=== PATIENT | female | born 1975 | race African-American/Black ===

== ENCOUNTER 2024-03-31 20:14 | Emergency (ER) | payer SELFPAY ==
--- NOTE | ~2024-03-31 | CT_ITS ---
EXAMINATION: CTA chest PE abdomen pel DATE: 04/01/2024 7:08 MANAGER PROJECT MANAGEMENT INDICATION: Shortness of breath TECHNIQUE: Computed tomographic angiography (CTA) of the chest, abdomen, and pelvis was performed wit h 100 mL Omnipaque-350 intravenous contrast. The dose-length product was 794.81 mGy-cm. Maximum inten sity projection 3D-reconstructions of the aorta and other arteries were constructed by the [employer] st on a separate workstation. Automated exposure control and iterative reconstruction technique were employed. COMPARISON: None. FINDINGS: CHEST CTA: No evidence for aortic aneurysm or dissection. No pulmonary embolism. No thoracic lymphadenopathy. No significant pleural or pericardial effusion. No pneumothorax. No endobronchial lesions. Dependent at electasis. No focal consolidation. No suspicious pulmonary nodules or masses. ABDOMEN AND PELVIS CTA: No significant vascular abnormality. Nonobstructive bowel gas pattern. The liver, spleen, pancreas, a drenal glands and kidneys are unremarkable. No lymphadenopathy. No abnormal pelvic masses or fluid co llections. Mild thoracic spondylosis. Mild osteoarthritis of the hips. Small subcentimeter hypodensit ies of the kidneys, most likely benign cysts. IMPRESSION: 1. No acute abnormality of the chest, abdomen or pelvis. Reviewed, dictated and finalized at location A. GER PROJECT MANAGEMENT
[2024-03-31 20:39] VITALS: BP 140/77; PULSE 70; RESP 20; TEMP 36.7; O2SAT 97
[2024-03-31 21:10] LABS: Add Urine Microscopic? YES; Appearance Urine Cloudy (Clear); Bacteria Urine 1+ /hpf; Bilirubin Urine Negative (Negative); Blood Urine 2+ (Negative); Color Urine Dark Yellow (Yellow); Glucose Urine UA Negative (Negative); Ketones Urine Trace mg/dL (Negative); Leukocyte Esterase Ur Negative LEU/UL (Negative); Need Manual Microscopic Reviewed; Nitrate Urine Negative (Negative); Non Pathogenic Casts 0-2; Protein Urine Negative (Negative); RBC Urine 21-50 /hpf (0-2); Specific Grav Ur 1.039 (1.001-1.035); Squamous Epithelial Cell Urine Many /hpf (Few)
[2024-04-01] VITALS (17 sets, daily range): BP systolic 148–186; BP diastolic 67–97; PULSE 75; RESP 17; O2SAT 95–100
[2024-04-01 00:24] LABS: Pregnancy On Board Control Positive; Urine Pregnancy Test Negative
[2024-04-01 00:24] LABS: Basophils Percent Auto 0.2 % (0.2-1.2); Eosinophils Percent Auto 0.2 % (0-4.4); Hematocrit 38.2 % (37.0-47.0); Hemoglobin 12.5 g/dL (12.0-15.0); Immature Granulocyte Absolute 0.01 K/mm3 (0.00-0.031); Immature Granulocyte Percent A 0.2 % (0-0.5); Lymphocytes Absolute Auto 1.31 K/mm3 (0.9-3.2); Lymphocytes Percent Auto 27.7 % (18.3-44.2); Mean Corpuscular HGB Conc 32.7 g/dl (32-36); Mean Corpuscular Hemoglobin 31.3 pg (26-34); Mean Corpuscular Volume 95.7 fl (80-100); Mean Platelet Volume 10.8 fl (7.4-10.4); Monocytes Absolute Auto 0.4 K/mm3 (0.1-0.6); Monocytes Percent Auto 8.5 % (2.6-8.5); Neutrophils Percent Auto 63.2 % (45.5-73.1); Platelet Count Result 187 k/mm3 (150-375); Red Blood Count 3.99 M/mm3 (4.2-5.4); Red Cell Distribution Width 13.4 % (11.5-14.5); White Blood Count 4.7 K/mm3 (4.5-10.0)
--- NOTE | 2024-04-01 00:35 | ECG_ITS ---
Test Date: 2024-04-01 00:35:00 Measurements Intervals [place] Rate: 65 P: 33 WY: 163 QRS: 89 QRSD: 104 T: 26 QT: 431 QTc: 448 Interpretive Statements SINUS RHYTHM NONSPECIFIC T-WAVE ABNORMALITY No previous ECG available for comparison Electronically Signed On 04-01-2024 15:56:29 BROOM MACHINE OPERATOR by Bernardo Steinberg M.D.
[2024-04-01 00:37] LABS: Alanine Aminotransferase 21 U/L (6-35); Alkaline Phosphatase 65 U/L (38-126); Anion Gap 8 mmol/L (4-12); Aspartate Amino Transferase 23 U/L (14-36); Bilirubin,Total 0.8 mg/dL (0.2-1.3); Blood Urea Nitrogen 11 mg/dL (7-17); Calcium 8.7 mg/dL (8.4-10.2); Carbon Dioxide 28 mmol/L (22-30); Chloride 103 mmol/L (98-107); Estimated Glomerular Filt Rate > 60; Glucose 92 mg/dL (65-110); Lipase 19 U/L (23-300); Potassium 3.3 mmol/L (3.4-5.0); Sodium 139 mmol/L (137-145)
[2024-04-01 01:00] LABS: Influenza A QL RT-PCR Negative (Negative); Influenza B QL RT-PCR Negative (Negative); RSV RNA, RT-PCR Negative (Negative); SARS-CoV-2 RNA PCR Negative (Negative)
--- OUTSIDE RECORDS SUMMARY | 2024-04-01 01:11 | XMS_ITS | Clinical Summary ---
Author Organization [facility] Care Team Providers Care Welder Apprentice Arc Name Role Phone Unavailable Primary Care Provider Unavailabl e Social History Tobacco Use Types Packs/Day Years Used Date Smoking Tobacco: Never Assessed Comments Unknown Sex and Gender Information Value Date Recorded Sex Assigned at Not on file Legal Sex Female 10:22 AM SATELLITE COMMUNICATIONS ENGINEER Gender Identity Not on file Sexual Orientation Not on file Plan of Treatment Health Maintenance Due Date Last Done Comments Hepatitis C Virus (HCV) Screening 1976 Pap Smear 1997 Cervical Cancer Screening (CCS) 2006 HPV/Cotest 2006 Hepatitis B Immunization (2 of 3 - 19+ 3-dose series) 10/23/2010 09/25/2010 Discussion re Starting/Frequency of Mammograms 2016 Colonoscopy 2021 Colorectal Cancer Screening 2021 Influenza Immunization (#1) 2023 SARS-COV-2 Immunization ( season) 2023 Respiratory Syncytial Virus (RSV) Immunization (Adult) (1 - 1-dose 75+ series) 12/09/2051 DTaP/Tdap/Td Immunization Discontinued 2010, 12/30/1991 TdaP Immunization Completed 09/25/2010 Meningococcal Immunization (ACWY) Aged Out 10/12/2010 No longer eligible based on patient's age to complete this topic Pneumococcal Immunization Combined Aged Out No longer eligible based on patient's age to complete this topic Rotavirus Immunization Aged Out No lo nger eligible based on patient's age to complete this topic
--- OUTSIDE RECORDS SUMMARY | 2024-04-01 01:12 | XMS_ITS | Referral Summary ---
Author Organization [facility] Address [address] [place] [address] Care Team Providers Care Joint Supervisor Name Role Phone Unavailable Primary Care Provider Unavailabl e Source Comments [facility],non-owned Affiliates and Associated Physician Practices is amultiple site organization consisting of ambulatory clinics and hospital sitesin [place], [place], [place] and [place]. This disclosure is being madepursuant to the Care Everywhere program and may not contain all information available regarding this patient. Last updated 17.[facility] [employer] Immunizations Name Administration Dates Next Due Yesy Matthews primary monoval ent 12+ yr 0.3mL Purple cap 04/18/2020,04/01/2020 Social History Tobacco Use Types Packs/Day Years Used Date Smoking Tobacco: Never Assessed Sex and Gender Information Value Date Recorded Sex Assigned at Not on file Gender Identity Not on file Sexual Orientation Not on file Plan of Treatment Not on file
--- OUTSIDE RECORDS SUMMARY | 2024-04-01 01:12 | XMS_ITS | Encounter Summary ---
Author Organization [facility] Address [address] [place] [address]. [place], [place] [address] [place] [address] Care Team Providers Care Patient Financial Counselor Name Role Phone None, Provider Primary Care Provider Unavaila ble Encounter Details Date Type Department Care Team (Late st Contact Info) Description 03/31/2024 7:43 PM LUMBER STACKER OPERATOR - Present Emergency [facility] [place] [address] Social History Tobacco Use Types Packs/Day Years Used Date Smoking Tobacco: Never Smokeless Tobacco: Never Alcohol Use Standard Drinks/Week Comments Not Currently 0 (1 standard drink = 0.6 oz pur e alcohol) occasional PHQ-2 Answer Date Recorded PHQ-2 Score - If the patient scores above 3, please move on to questions 3-9 0 10/22/2019 Comments No Sex and Gender Information Value Date Recorded Sex Assigned at Not on file Legal Sex Female 12:16 PM CDT Gender Identity Not on file Sexual Orientation Not on file documented as of this encounter Functional Status * RETIRED Are you deaf or do you have serious difficulty hearing Answer Date of Assessment Author Status No 02/21/2021 8:41 PM LUMBER STACKER OPERATOR Activ e * RETIRED Are you blind or do you have serious difficulty seeing, even when wearing glasses? Answer Date of Assessment Author Status No 02/21/2021 8:41 PM LUMBER STACKER OPERATOR Activ e * Do you have serious difficulty walking or climbing stairs? Answer Date of Assessment Author Status No 02/21/2021 8:41 PM LUMBER STACKER OPERATOR Emerita Medina RN Active * Do you have difficulty dressing or bathing? Answer Date of Assessment Author Status No 02/21/2021 8:41 PM LUMBER STACKER OPERATOR Emerita Medina RN Active * Because of a physical, mental, or emotional condition, do you have difficulty doing errands alone such as visiting a doctor's office or shopping? Answer Date of Assessment Author Status No 02/21/2021 8:41 PM LUMBER STACKER OPERATOR Emerita Medina RN Active documented as of this encounter Mental Status * Because of a physical, mental, or emotional condition, do you have serious difficulty concentrating, remembering, or making decisions? Answer Entry Date Author Status No 02/21/2021 8:41 PM LUMBER STACKER OPERATOR Emerita Medina RN Active documented in this encounter ED Notes * Tonia Russo RN - 03/31/2024 7:42 PM CST Patient checked into ER and then walked out the doors to the waiting room prior to obtaining vitals, performing triage or seeing staff. ER STACKER OPERATOR documented in this encounter Plan of Treatment Not on file documented as of this encounter Visit Diagnoses Not on filedocumented in this encounter Care Teams Patient Financial Counselor Relationship Specialty Start Date End Date None, Provider, PCP - General 12/14/20 documented as of this encounter
--- OUTSIDE RECORDS SUMMARY | 2024-04-01 01:12 | XMS_ITS | Patient Health Summary ---
Author Organization [facility] Address [address] [place] [address] Care Team Providers Care Technical Asst Name Role Phone Unavailable Primary Care Provider Unavailabl e Note from [facility],non-owned Affiliates and Associated Physician Practices is amultiple site organization consisting of ambulatory clinics and hospital sitesin [place], [place], [place] and [place]. This disclosure is being madepursuant to the Care Everywhere program and may not contain all information available regarding this patient. Last updated 17.[facility] Immunizations * Covid Pfizer primary monovalent 12+ yr 0.3mL Purple cap(Given 04/18/2020, 04/01/2020) Social History Tobacco Use Types Packs/Day Years Used Date Smoking Tobacco: Never Assessed Sex and Gender Information Value Date Recorded Sex Assigned at Not on file Gender Identity Not on file Sexual Orientation Not on file
--- OUTSIDE RECORDS SUMMARY | 2024-04-01 01:12 | XMS_ITS | Clinical Summary ---
Author Organization [facility] Address [address] [place] [address] Care Team Providers Care Filler In Name Role Phone No, Physician Primary Care Provider [phone] Johnnie Pineda MD Unavailable [phone] Allergies No known active allergies Medications ferrous sulfate 325 mg (65 mg of elemental iron) tabletIndicatio ns:Iron Deficiency Anemia Take 65 mg of elemental iron by mouth daily with breakfast Active ibuprofen (ADVIL,MOTRIN) 400 mg tablet Take by mouth every 6 (six) hours as needed for pain Active acetaminophen-p amabrom 500-25 mg tablet Take 2 tablets by mouth 2 (two) times a day as needed (cramp) Active Active Problems Problem Noted Date Diagnosed Date Menorrhagia with regular cycle 05/04/2021 Surgical History Surgery Date Site/Laterality Comments APPENDECTOMY SECTION x 3 TUBAL LIGATION COLONOSCOPY Medical History Medical History Date Comments Motion sickness Asthma 2010 just during preg dean Dysmenorrhea Bleeding Heavy vaginal Excessive gas negative colonos copy Covid 02/2021 mild illness--no t hospitalized--no residual effects Social History Tobacco Use Types Packs/Day Years Used Date Smoking Tobacco: Never AUDIT-C Answer Date Recorded Q1: How often do you have a drink containing alc ohol? Monthly or less 05/01/2021 Q2: How many drinks containi ng alcohol do you have on a typical day when you are drinking? 1 or 2 05/01/2021 Frequency of Binge Drinking Not on file 04/05 Comments No Sex and Gender Information Value Date Recorded Sex Assigned at Not on file Legal Sex Female 12:21 AM TRAINING COORDINATOR Gender Identity Not on file Sexual Orientation Not on file Obstetrics History Last Filed Vital Signs Vital Sign Reading Time Taken Comments Blood Pressure 100/57 05/05/2021 8:29 AM TRAINING COORDINATOR Pulse 73 05/05/2021 8:29 AM TRAINING COORDINATOR Temperature 36.7 ??C (98 ??F) 05/05/2021 8:29 AM TRAINING COORDINATOR Respiratory Rate 16 05/05/2021 8:29 AM TRAINING COORDINATOR Oxygen Saturation 96% 05/05/2021 8:29 AM TRAINING COORDINATOR Inhaled Oxygen Concentration - - Weight 66.5 kg (146 lb 9 oz) 05/04/2021 8:37 AM TRAINING COORDINATOR Height 149.9 cm (4' 11 ) 05/04/2021 8:37 AM TRAINING COORDINATOR Body Mass Index 29.6 05/04/2021 8:37 AM TRAINING COORDINATOR Plan of Treatment Health Maintenance Due Date Last Done Comments Breast Cancer Screening-Mammogram 1976 Cervical Cancer Screening 1976 Colon Cancer Screening-Colonoscopy 1976 Depression Screening 1976 Hepatitis C Screening 1976 Regular Well Visit/Exam 18-64 1994 DTaP/Tdap/Td Vaccine (4 - Td or Tdap) 10/12/2020 10/12/2010, 09/25/2010, 12/30/1991 Covid-19 Vaccine ( - 2023-2 5 season) 2023 03/11/2021, 04/18/2020, 04/01/2020 Influenza Vaccine (#1) 2023 Pneumococcal vaccine <65 Aged Out No longer eligible based on patient's age to complete this topic [place] [address] [place] [id number] [facility] Advance Directives For more information, please contact: [phone] * Full Code (Latest Code Status on File) Date Activated Date Inactivated Comments 05/04/2021 2:21 PM 05/05/2021 5:57 PM Care Teams Filler In Relationship Specialty Start Date End Date No, Physician PCP - General 05/04/21 Johnnie Pineda MD [address] [place] [id number] Consulting Physician Internal Medicine 05/05/21
--- OUTSIDE RECORDS SUMMARY | 2024-04-01 01:12 | XMS_ITS | Referral Summary ---
Author Organization [facility] Address [address] [place] [address] Care Team Providers Care Mitten Sewer Name Role Phone No, Physician Primary Care Provider [phone] Johnnie Pineda MD Unavailable [phone] Allergies No known active allergies Medications ferrous [...] Diagnosed Date Menorrhagia with regular cycle 05/04/2021 Social History Tobacco Use Types Packs/Day Years [...] on file Legal Sex Female 12:21 AM HAND MICA PLATE LAYER Gender Identity Not on file Sexual Orientation Not on file Last Filed Vital Signs Vital Sign Reading Time Taken Comments Blood Pressure 100/57 05/05/2021 8:29 AM HAND MICA PLATE LAYER Pulse 73 05/05/2021 8:29 AM HAND MICA PLATE LAYER Temperature 36.7 ??C (98 ??F) 05/05/2021 8:29 AM HAND MICA PLATE LAYER Respiratory Rate 16 05/05/2021 8:29 AM HAND MICA PLATE LAYER Oxygen Saturation 96% 05/05/2021 8:29 AM HAND MICA PLATE LAYER Inhaled Oxygen Concentration - - Weight 66.5 kg (146 lb 9 oz) 05/04/2021 8:37 AM HAND MICA PLATE LAYER Height 149.9 cm (4' 11 ) 05/04/2021 8:37 AM HAND MICA PLATE LAYER Body Mass Index 29.6 05/04/2021 8:37 AM HAND MICA PLATE LAYER Plan of Treatment Not on file Insurance Advance Directives For more information, please contact: [phone] * Full Code (Latest Code Status on File) Date Activated Date Inactivated Comments 05/04/2021 2:21 PM 05/05/2021 5:57 PM Care Teams Mitten Sewer Relationship Specialty Start Date End Date No, Physician PCP - General 3/3/22 Johnnie Pineda MD [address] [place] [address] Consulting Physician Internal Medicine 05/05/21
--- OUTSIDE RECORDS SUMMARY | 2024-04-01 01:12 | XMS_ITS | Data Portability ---
Author Organization [email or web address] , [facility] Address [address] [place] [address] Care Team Providers Care Geological Aide Name Role Phone [facility] Senior Principal Software Engineer Assessment Encounter Date Assessment Date Assessment LastModified by Organization Details LastModified Time 06/07/2022 06/07/2022 Menopausal vasomotor sx: Discussed etiology and significant variation in quality and duration of sx between women. Discussed options for treatment at length, including lifestyle changes, exercise, HRT, SSRIs, other medications, and CAM therapies. Discussed HRT as gold standard of tx. Check hormonal assay to confirm menopausal status. Desires to attempt non-hormonal tx until then- script sent for Effexor and instructed on usage. Requesting mammo orders- sent to [facility]. f/u 3 m or as needed. [email or web address] Not available 09/03/2022 13:40:07 Plan of Treatment Reminders Order Date Submit Date Provider Last Modified By Organization Details Last Modified Time Details Appointments None recorde d. Lab TSH + free T4, serum 2021 [facility], [address] [place], [address], 13:57:07 CBC w/ auto diff 2021 [facility], [address] [place], [address], 13:57:06 CMP, serum or plasma 2021 [facility], [address] [place], [address], 13:57:05 magnesi um, serum or plasma 2021 022 [facility], [address] [place], [address], 13:57:04 bacteri al vaginos is + vaginit is panel, vaginal 2021 022 [facility], [address] [place] [address], [address], 08:02:58 testost erone, free + total, serum 2021 022 [facility]ASHAS[facility], [address] [place], [address], 13:57:07 lh + FSH, serum 2021 022 [facility], [address] [place], [address], 13:57:06 estradi ol, serum 2022 023 [facility], [address] [place], [address], 3 08:15:48 FSH (follic le-stim ulating hormone ), serum - fasting AM lab 2022 023 [facility], [address] [place], [address], 3 16:11:47 urinaly sis, dipstic k 2022 023 [email or web address] [facility], [address] [place], [address], 3 17:20:34 culture , urine 2022 023 [facility], [address] [facility], [place], [address], 3 23:17:39 bacteri al vaginos is + vaginit is panel, vaginal 2022 023 [facility], [address] [place], [address], 3 09:50:10 Referral None recorde d. Procedures None recorde d. Surgeries None recorde d. Imaging MAMMO, screeni ng, digital , bilater al 2021 022 [email or web address] Not available 12:28:35 MAMMO, screeni ng, digital , bilater al 2022 023 [facility], [address] [facility], [place], [address], 3 15:03:43 Medication Orders Colace 100 mg capsule 2021 022 [email or web address] [facility] [address], [address], 3 10:27:54 zolpide m 10 mg tablet 2021 022 [email or web address] [facility] [address], [address], 3 12:42:57 venlafa xine ER 75 mg capsule ,extend ed release 24 hr 2022 023 [email or web address] [facility] [address], [address], 3 13:34:27 Vivelle -Dot 0.05 mg/24 hr transde rmal patch 2022 023 TASHA [facility] [address] [place] [address] [address], [place], [address], 11:38:30 Cipro 500 mg tablet 2022 023 T[facility] [address] [place] [address], [address], 16:48:46 Flagyl 500 mg tablet 2022 023 TASHA JEVON [address] [address] [place] [address] [address], [place], [address], 16:48:45 estradi ol 0.01% (0.1 mg/gram ) vaginal cream 2022 023 TASHA JEVON [address] [address] [place] [address] [address], [place], [address], 16:48:45 Patient TargetsNo targets recorded. Patient Instructions Encounter Date Encounter Id Patient Instructions Last Modified By Organization Details Last Modified Time 07/02/2022 [id number] A healthy lifestyle: care instructions Not available 07/02/2022 11:36:19 Following the [employer] Food Guide: Care Instructions Not available 07/02/2022 11:36:19 exercise program : getting started Not available 07/02/2022 11:36:19 Reason for Referral None Reported. Results Created Date Observation Date Name Description Value Unit Range Abnormal Flag Note LastModifiedBy Organization Detail LastModifiedTime 12/14/1912/13/2021 MAGNE SIUM magnesium 2.0 mg/dL 1.5-2. 5 normal Not Available [employer] [facility] [address] [address], [address], 12/13/2021 13:57:04 12/14/19 22 12/13/2021 COMPR EHENS MORENA METAB OLIC PANEL glucose 85 mg/dL 65-99 normal Fasti ng refer ence inter amari Not Available [place] [address] [address] [place], [address], 12/13/2021 13:57:05 12/14/19 22 12/13/2021 COMPR EHENS MORENA METAB OLIC PANEL urea nitrogen (BUN) 8 mg/dL 7-25 normal Not Available [place] [address] [address] [place], [address], 12/13/2021 13:57:05 12/14/19 22 12/13/2021 COMPR EHENS MORENA METAB OLIC PANEL creatinine 0.72 mg/dL 0.50-0 .99 normal Not Available [place] [address] [address] [place], [address], 12/13/2021 13:57:05 12/14/19 22 12/13/2021 COMPR EHENS MORENA METAB OLIC PANEL eGFR 105 mL/mi n/1.7 3m2 > or = 60 normal The eGFR is based on the CKD-E PI 2020 equat ion. To calcu late the new eGFR from a previ ous Creat inine or Cysta tin C resul t, go to https ://melba robles.lani reina/danny huerta s/ kdoqi /gfr% 5Fcal culat or Not Available [address] [address] [place], [address], 12/13/2021 13:57:05 12/14/19 22 12/13/2021 COMPR EHENS MORENA METAB OLIC PANEL BUN/creatini ne ratio NOT APPLIC ABLE (calc ) 6-22 Not Available [address] [address] [place], [address], 12/13/2021 13:57:05 12/14/19 22 12/13/2021 COMPR EHENS MORENA METAB OLIC PANEL sodium 141 mmol/ L 135-14 6 normal Not Available [address] [address] [place], [address], 12/13/2021 13:57:05 12/14/19 22 12/13/2021 COMPR EHENS MORENA METAB OLIC PANEL potassium 3.8 mmol/ L 3.5-5. 3 normal Not Available [address], [address], 12/13/2021 13:57:05 12/14/19 22 12/13/2021 COMPR EHENS MORENA METAB OLIC PANEL chloride 107 mmol/ L 98-110 normal Not Available [address], [address], 12/13/2021 13:57:05 12/14/19 22 12/13/2021 COMPR EHENS MORENA METAB OLIC PANEL carbon dioxide 28 mmol/ L 20-32 normal Not Available [address], [address], 12/13/2021 13:57:05 12/14/19 22 12/13/2021 COMPR EHENS MORENA METAB OLIC PANEL calcium 9.4 mg/dL 8.6-10 .2 normal Not Available [address], [address], 12/13/2021 13:57:05 12/14/19 22 12/13/2021 COMPR EHENS MORENA METAB OLIC PANEL protein, total 6.9 g/dL 6.1-8. 1 normal Not Available [address], [address], 12/13/2021 13:57:05 12/14/19 22 12/13/2021 COMPR EHENS OMRENA METAB OLIC PANEL albumin 4.2 g/dL 3.6-5. 1 normal Not Available [address], [address], 12/13/2021 13:57:05 12/14/19 22 12/13/2021 COMPR EHENS MORENA METAB OLIC PANEL globulin 2.7 g/dL_ (calc ) 1.9-3. 7 normal Not Available [address] [address] [place], [address], 12/13/2021 13:57:05 12/14/19 22 12/13/2021 COMPR EHENS MORENA METAB OLIC PANEL albumin/glob ulin ratio 1.6 (calc ) 1.0-2. 5 normal Not Available [address], [address], 12/13/2021 13:57:05 12/14/19 22 12/13/2021 COMPR EHENS MORENA METAB OLIC PANEL bilirubin, total 0.3 mg/dL 0.2-1. 2 normal Not Available [address], [address], 12/13/2021 13:57:05 12/14/19 22 12/13/2021 COMPR EHENS MORENA METAB OLIC PANEL alkaline phosphatase 48 U/L 31-125 normal Not Available [address], [address], 12/13/2021 13:57:05 12/14/19 22 12/13/2021 COMPR EHENS MORENA METAB OLIC PANEL AST 16 U/L 10-35 normal Not Available [address], [address], 12/13/2021 13:57:05 12/14/19 22 12/13/2021 COMPR EHENS MORNEA METAB OLIC PANEL ALT 14 U/L 6-29 normal Not Available [address], [address], 12/13/2021 13:57:05 12/14/19 22 12/13/2021 CBC (INCL UDES DIFF/ PLT) white blood cell count 6.4 thous and/u L 3.8-10 .8 normal Not Available [address], [address], 12/13/2021 13:57:06 12/14/19 22 12/13/2021 CBC (INCL UDES DIFF/ PLT) red blood cell count 3.87 david on/uL 3.80-5 .10 normal Not Available [address], [address], 12/13/2021 13:57:06 12/14/19 22 12/13/2021 CBC (INCL UDES DIFF/ PLT) hemoglobin 10.5 g/dL 11.7-1 5.5 low Not Available [address], [address], 12/13/2021 13:57:06 12/14/1912/13/2021 CBC (INCL UDES DIFF/ PLT) hematocrit 32.6 % 35.0-4 5.0 low Not Available [address], [address], 12/13/2021 13:57:06 12/14/19 22 12/13/2021 CBC (INCL UDES DIFF/ PLT) MCV 84.2 fL 80.0-1 00.0 normal Not Available [address], [address], 12/13/2021 13:57:06 12/14/19 22 12/13/2021 CBC (INCL UDES DIFF/ PLT) MCH 27.1 pg 27.0-3 3.0 normal Not Available [address], [address], 12/13/2021 13:57:06 12/14/19 22 12/13/2021 CBC (INCL UDES DIFF/ PLT) MCHC 32.2 g/dL 32.0-3 6.0 normal Not Available [address], [address], 12/13/2021 13:57:06 12/14/19 22 12/13/2021 CBC (INCL UDES DIFF/ PLT) RDW 17.0 % 11.0-1 5.0 high Not Available [address], [address], 12/13/2021 13:57:06 12/14/1912/13/2021 CBC (INCL UDES DIFF/ PLT) platelet count 218 thous and/u L 140-40 0 normal Not Available [address], [address], 12/13/2021 13:57:06 12/14/1912/13/2021 CBC (INCL UDES DIFF/ PLT) MPV 11.5 fL 7.5-12 .5 normal Not Available [address], [address], 12/13/2021 13:57:06 12/14/1912/13/2021 CBC (INCL UDES DIFF/ PLT) absolute neutrophils 3962 cells /uL 1500-7 800 normal Not Available [address], [address], 12/13/2021 13:57:06 12/14/1912/13/2021 CBC (INCL UDES DIFF/ PLT) absolute lymphocytes 1818 cells /uL 850-39 00 normal Not Available [address], [address], 12/13/2021 13:57:06 12/14/1912/13/2021 CBC (INCL UDES DIFF/ PLT) absolute monocytes 531 cells /uL 200-95 0 normal Not Available [address], [address], 12/13/2021 13:57:06 12/14/1912/13/2021 CBC (INCL UDES DIFF/ PLT) absolute eosinophils 51 cells /uL 15-500 normal Not Available [address], [address], 12/13/2021 13:57:06 12/14/19 22 12/13/2021 CBC (INCL UDES DIFF/ PLT) absolute basophils 38 cells /uL 0-200 normal Not Available [address], [address], 12/13/2021 13:57:06 12/14/19 22 12/13/2021 CBC (INCL UDES DIFF/ PLT) neutrophils 61.9 % normal Not Available [facility] [address], [address], 12/13/2021 13:57:06 12/14/1912/13/2021 CBC (INCL UDES DIFF/ PLT) lymphocytes 28.4 % normal Not Available [address], [address], 12/13/2021 13:57:06 12/14/1912/13/2021 CBC (INCL UDES DIFF/ PLT) monocytes 8.3 % normal Not Available [address], [address], 12/13/2021 13:57:06 12/14/1912/13/2021 CBC (INCL UDES DIFF/ PLT) eosinophils 0.8 % normal Not Available [address], [address], 12/13/2021 13:57:06 12/14/1912/13/2021 CBC (INCL UDES DIFF/ PLT) basophils 0.6 % normal Not Available [address], [address], 12/13/2021 13:57:06 12/14/19 22 12/13/2021 FSH AND LH FSH 12.0 mIU/m L normal Refer ence Range Folli cular Phase 2.5-1 0.2 Mid-c ycle Peak 3.1-1 7.7 Lutea l Phase 1.5- 9.1 Postm enopa usal 23.0- 116.3 Not Available [facility] [address] [place], [address], 12/13/2021 13:57:06 12/14/19 22 12/13/2021 FSH AND LH LH 16.6 mIU/m L normal Refer ence Range Folli cular Phase 1.9-1 2.5 Mid-C ycle Peak 8.7-7 6.3 Lutea l Phase 0.5-1 6.9 Postm enopa usal 10.0- 54.7 Not Available [facility] [address] [place], [place] [address]o [place], [address], 12/13/2021 13:57:06 12/14/1912/13/2021 TSH+F REE T4 TSH 1.57 mIU/L normal Refer ence Range > or = 20 Years 0.40- 4.50 Pregn amy Range s First trime ster 0.26- 2.66 Secon d trime ster 0.55- 2.73 Third trime ster 0.43- 2.91 Not Available [facility] [address] [place] [address], [address], 12/13/2021 13:57:07 12/14/19 22 12/13/2021 TSH+F REE T4 T4, free 1.1 NG/dL 0.8-1. 8 normal Not Available [address], [address], 12/13/2021 13:57:07 12/14/19 22 12/13/2021 TESTO STERO NE, FREE (DIAL YSIS) AND TOTAL ,MS testosterone , total, MS 62 NG/dL 2-45 high For addit ional trista maya e refer to https ://ed morganati on.qu ericdi [employer]. com/f aq/FA Q165 (This link is being provi ded for umm hernandez nal/e ducat ional purpo ses only. ) (Note ) This test was devel oped and its kenny tical perfo rmanc e lauren cteri stics have been deter mined by [employer]. It has not been clear ed or appro trinity by the FDA. This assay has been valid ated pursu ant to the CLIA regul ation s and is used for clini trish purpo ses. Not Available [employer] [facility] [address] [address], [address], 12/13/2021 13:57:07 12/14/19 22 12/13/2021 TESTO STERO NE, FREE (DIAL YSIS) AND TOTAL ,MS testosterone , free 2.3 pg/mL 0.1-6. 4 (Note ) This test was devel oped and its kenny tical perfo rmanc e lauren cteri stics have been deter mined by [employer] mireille. It has not been clear ed or appro trinity by the FDA. This assay has been valid ated pursu ant to the CLIA regul ation s and is used for clini trish purpo ses. [facility] med fusio n [address] [facility] [address] [facility] [address] [phone] Willard cueva MD NO COLLE CTION DATE RECEI TRINITY. WE HAVE USED THE DATE THE SPECI MEN WAS RECEI TRINITY BY THIS LABOR ATORY THE COLLE CTION DATE. IF THIS IS INCOR RECT, PLEAS E CONTA CT CLIEN T SERVI MENDEZ. PHONE NUMBE R: [phone] Not Available [employer] [facility] [address] , [place], [address], 12/13/2021 13:57:07 12/09/19 22 12/12/2021 VAGIN ITIS PLUS STD PANEL bacterial vaginosis BV POS negati ve abnormal Not Available [email or web address] [address] [place], [address], 12/13/2021 08:02:58 12/09/19 22 12/12/2021 VAGIN ITIS PLUS STD PANEL emir species C. spp neg negati ve normal Not Available [email or web address] [address] [place], [address], 12/13/2021 08:02:58 12/09/19 22 12/12/2021 VAGIN ITIS PLUS STD PANEL emir glabrata C. gla neg negati ve normal Not Available [address], [address], 12/13/2021 08:02:58 12/09/19 22 12/12/2021 VAGIN ITIS PLUS STD PANEL trichomonas vaginalis CV/TV TRICH neg negati ve normal Not Available [address], [address], 12/13/2021 08:02:58 12/09/1912/12/2021 VAGIN ITIS PLUS STD PANEL chlamydia trachomatis CT neg negati ve normal This repor t is inten ded for us in clini trish monit oring and manag ement of patie nts. It is not inten ded for use in medic al-le gal appli catio n. Not Available [address], [address], 12/13/2021 08:02:58 12/09/19 22 12/12/2021 VAGIN ITIS PLUS STD PANEL neisseria gonorrhoeae GC neg negati ve normal This repor t is inten ded for us in clini trish monit oring and manag ement of patie nts. It is not inten ded for use in medic al-le gal appli catio n. Not Available [address], [address], 12/13/2021 08:02:58 06/26/19 23 06/26/2022 ESTRA DIOL estradiol 154 pg/mL normal Refer ence Range Folli cular Phase : 19-14 4 Mid-C ycle: 64-35 7 Lutea l Phase : 56-21 4 Postm enopa usal: < or = 31 Refer ence range estab lishe d on post- puber miranda patie nt popul ation . No pre-p ubert al refer ence range estab lishe d using this assay . For any patie nts for whom low Estra diol level s are antic ipate d (e.g. males , pre-p ubert al child diana and hypog onada l/pos t-men opaus al femal es), the [facility] Lev ls Insti tute Estra diol, Ultra sensi tive, LCMSM S assay is recom maureen d (orde r code 12075 ). Pleas e note: patie nts being treat ed with the drug fulve stran t (Fasl odex( R)) have demon strat ed signi fican t inter feren ce in immun oassa y metho ds for estra diol measu remen t. The cross react ivity could lead to false ly eleva nyasia estra diol test resul ts leadi ng to an inapp ropri ate clini trish asses sment of estro gen statu s. [facility] order code [id number] -Estr adiol , Ultra sensi tive LC/MS /MS demon strat es negli gible cross react ivity with fulve stran t. Not Available [employer] [facility] [address] [address] [place], [address], 06/26/2022 08:15:48 06/26/19 23 06/26/2022 FSH FSH 48.7 mIU/m L Refer ence Range s are for femal es aged 18 years - Adult Shanna l Menst ruati ng Femal e: Folli cular phase : 2.5-1 0.2 mIU/m L Mid-C ycle Peak: 3.4-3 3.4 mIU/m L Lutea l phase : 1.5-9 .1 mIU/m L Pregn ant: <0.3 mIU/m L Post- menop ausal : 23.0- 116.6 mIU/m L Not Available [facility] [address] [place], [address], 06/26/2022 13:16:38 11/27/19 23 11/28/2022 CULTU RE, URINE , ROUTI NE culture, urine, routine SEE NOTE abnormal CULTU RE, URINE , ROUTI NE Micro Numbe r: [id number] Test Statu s: Final Speci men Sourc e: Urine Speci men Quali ty: Adequ ate Resul t: Great er than 100,0 00 CFU/m L of Prote us mirab ilis P.bakari abili s ----- ----- ----- - INT SEBAS AMOX/ CLAVU LANAT E S <=2 AMP/S ULBAC RIVERA S <=2 CEFAZ KEHINDE R 8 1 CEFEP SAMUEL S <=0.1 2 CEFTA ZIDIM E S <=1 CEFTR IAXON E S <=0.2 5 CIPRO FLOXA EMILIA S 0.25 GENTA MICIN S <=1 LEVOF LOXAC IN S 0.25 MEROP ENEM S <=0.2 5 NITRO FURAN TOIN R 128 PIP/T AZOBA CTAM S <=4 TRIME THOPR IM/GUZMAN LFA S <=20 S=Emmanuelle cepti ble I=Int ermed iate R=Res istan t * = Not Teste d NR = Not Repor nyasia NN = See Thera py Comme nts THERA PY COMME NTS Note 1: For uncom plica nyasia UTI cause d by E. coli, K. pneum oniae or P. mirab ilis: Cefaz kehinde is susce ptibl e if SEBAS <32 mcg/m L and predi cts susce ptibl e to the oral agent s cefac don, cefdi laya, cefpo doxim e, cefpr ozil, cefur oxime , cepha lexin and lorac arbef . Not Available [facility] [address] [address], [address], 11/28/2022 18:52:00 11/27/1911/27/2022 VAGIN ITIS PLUS STD PANEL bacterial vaginosis BV POS negati ve abnormal Not Available [place], [address], 11/28/2022 09:50:10 11/27/1911/27/2022 VAGIN ITIS PLUS STD PANEL emir species C. spp neg negati ve normal Not Available [place], [address], 11/28/2022 09:50:10 11/27/19 23 11/27/2022 VAGIN ITIS PLUS STD PANEL emir glabrata C. gla neg negati ve normal Not Available [address], [address], 11/28/2022 09:50:10 11/27/19 23 11/27/2022 VAGIN ITIS PLUS STD PANEL trichomonas vaginalis CV/TV TRICH neg negati ve normal Not Available [address], [address], 11/28/2022 09:50:10 11/27/19 23 11/27/2022 VAGIN ITIS PLUS STD PANEL chlamydia trachomatis CT neg negati ve normal This repor t is inten ded for us in clini trish monit oring and manag ement of patie nts. It is not inten ded for use in medic al-le gal appli catio n. Not Available [address], [address], 11/28/2022 09:50:10 11/27/19 23 11/27/2022 VAGIN ITIS PLUS STD PANEL neisseria gonorrhoeae GC neg negati ve normal This repor t is inten ded for us in clini trish monit oring and manag ement of patie nts. It is not inten ded for use in medic al-le gal appli catio n. Not Available [address], [address], 11/28/2022 09:50:10 11/27/1911/26/2022 urina lysis , dipst ick Leukocytes Trace Not Available [facility] [address] [place] [address], [address], 11/26/2022 16:28:25 11/27/19 23 11/26/2022 urina lysis , dipst ick Nitrite negati ve Not Available [facility] [address] [place], [address], 11/26/2022 16:28:25 11/27/19 23 11/26/2022 urina lysis , dipst ick Urobilinogen .2 Not Available [address], [place], [address], 11/26/2022 16:28:25 11/27/19 23 11/26/2022 urina lysis , dipst ick Protein Trace Not Available [address], [place], [address], 11/26/2022 16:28:25 11/27/19 23 11/26/2022 urina lysis , dipst ick pH 6.5 Not Available [address], [place], [address], 11/26/2022 16:28:25 11/27/19 23 11/26/2022 urina lysis , dipst ick Blood Large Not Available [address], [place], [address], 11/26/2022 16:28:25 11/27/19 23 11/26/2022 urina lysis , dipst ick Specific [place] 1.020 Not Available [address], [place], [address], 11/26/2022 16:28:25 11/27/19 23 11/26/2022 urina lysis , dipst ick Ketone Trace Not Available [address], [place], [address], 11/26/2022 16:28:25 11/27/19 23 11/26/2022 urina lysis , dipst ick Bilirubin Negati ve Not Available [address], [place], [address], 11/26/2022 16:28:25 11/27/19 23 11/26/2022 urina lysis , dipst ick Glucose Negati ve Not Available [facility] [address] [facility], [place], [address], 11/26/2022 16:28:25 11/27/19 23 11/26/2022 urina lysis , dipst ick Appearance Cloudy Not Available [address], [place], [address], 11/26/2022 16:28:25 11/27/19 23 11/26/2022 urina lysis , dipst ick Color Dark Yellow Not Available [facility] [address] [place] [address] [place], [address], 11/26/2022 16:28:25 Result Notes None recorded. Problems Name Problem SNOMED Code Status Onset Date Resolution Date Notes Provider Name and Address Organization Details Recorded Time Vaginola bial hernia Completed 201704/12/2018 Other specifie d noninfla mmatory disorder s of vagina; Progress : Stable Added By: Claudia Boone Add to Current Problems : NO ProblemS tatus: Resolve Vaginal Discharg e; Location : None Progress : Stable Added By: Claudia Boone Add to Current Problems : YES ProblemS tatus: Resolve Not Available [facility] 2 19:17:35 Injectio n given [id number] Completed 201510/25/2016 Follow-u p visit for Depo Provera injectio n; Severity : Moderate Progress : Stable Added By: Charisma Allen Add to Current Problems : NO ProblemS tatus: Resolve Not Available [facility] 1 03:49:31 Syphilis test finding [id number] Completed 201704/20/2018 Encounte r for screenin g for infectio ns with a predomin antly sexual mode of transmis mireille; Progress : Stable Added By: Concepcion Parks Add to Current Problems : NO ProblemS tatus: Resolve Not Available [facility] 2 19:17:35 Uses depot contrace ption [id number] Completed 201510/24/2016 Initiati on of Depo Provera contrace ption; Severity : Moderate Progress : Stable Added By: Alayna Moreira Add to Current Problems : NO ProblemS tatus: Resolve Not Available [facility] [address] 03:49:[address] Concept Completed 201510/25/2016 Encounte r for surveill ance of other contrace ptives; Progress : Stable Added By: Charisma Allen Add to Current Problems : NO ProblemS tatus: Resolve Not Available [facility] 2 19:17:35 Vulvovag initis [id number] Completed 201710/24/2018 Other specifie d inflamma tion of vagina and vulva; Progress : Stable Added By: Charisma Allen Add to Current Problems : NO ProblemS tatus: Resolve Vagintiu s Unspecif ied; Location : None Progress : Stable Added By: Charisma Allen Add to Current Problems : YES ProblemS tatus: Resolve Not Available [facility] 2 19:17:35 Female genital organ symptoms [id number] Completed 201702/19/2018 Pelvic pain; Location : None Progress : Stable Added By: Charisma Allen Add to Current Problems : YES ProblemS tatus: Resolve Not Available [facility] 2 19:17:33 Acute vaginiti s [id number] Completed 201703/23/2018 Acute vaginiti s; Progress : Stable Added By: Amilcar Cao Add to Current Problems : NO ProblemS tatus: Resolve Bacteria l vaginosi s; Location : None Progress : Stable Added By: Amilcar Cao Add to Current Problems : YES ProblemS tatus: Resolve Not Available [facility] 2 19:17:34 Cyst of ovary [id number] Active 2016 Unspecif ied ovarian cysts; Progress : Stable Added By: Bebe Rockwell Add to Current Problems : YES ProblemS tatus: Current Not Available [facility] 2 19:17:33 Uterine leiomyom a [id number] Completed 201707/29/2017 Leiomyom a of uterus, unspecif ied; Progress : Stable Added By: Patt Hinojosa Add to Current Problems : NO ProblemS tatus: Resolve Not Available [facility] 2 19:17:34 Emir infectio n of genital region Completed 201501/24/2016 Candidia sis of vulva and vagina; Progress : Stable Added By: Claudia Aguayo Add to Current Problems : NO ProblemS tatus: Resolve Not Available [facility] 2 19:17:32 Acute sinusiti s 08754490 Completed 201501/24/2016 Acute sinusiti s, other; Progress : Stable Added By: Claudia Aguayo Add to Current Problems : NO ProblemS tatus: Resolve Not Available [facility] 2 19:17:32 Follicul ar cyst of ovary 2228877 Active 2016 Ovarian cyst; Progress : Stable Added By: Bebe Rockwell Add to Current Problems : YES ProblemS tatus: Current Not Available [facility] 2 19:17:33 Acute pansinus itis 0396303 Completed 201501/24/2016 Acute pansinus itis, unspecif ied; Progress : Stable Added By: Claudia Aguayo Add to Current Problems : NO ProblemS tatus: Resolve Not Available [facility] 2 19:17:32 Pelvic and perineal pain 992501562 Completed 201602/19/2018 Pelvic and perineal pain; Progress : Stable Added By: Charisma Allen Add to Current Problems : NO ProblemS tatus: Resolve pelvic pain; Location : None Progress : Stable Added By: Bebe Rockwell Add to Current Problems : YES ProblemS tatus: Resolve Not Available [facility] 2 19:17:34 Neoplasm of body of uterus 288363766 Completed 201707/29/2017 Uterine fibroids ; Progress : Stable Added By: Patt Hinojosa Add to Current Problems : NO ProblemS tatus: Resolve Not Available [facility] 2 19:17:33 Venereal disease screenin g Completed 201704/20/2018 Screenin g for STDs; Progress : Stable Added By: Concepcion Parks Add to Current Problems : NO ProblemS tatus: Resolve Not Available [facility] 2 19:17:33 History of hysterec dann 890063022 Active 2021 Shannan [place], [place] [facility] 2 10:42:45 Clinical finding Completed 201510/24/2016 Encounte r for initial prescrip tion of injectab le contrace ptive; Progress : Stable Added By: Alayna Moreira Add to Current Problems : NO ProblemS tatus: Resolve Initiati on of Depo Provera contrace ption; Location : None Progress : Stable Added By: Alayna Moreira Add to Current Problems : YES ProblemS tatus: Resolve Not Available [facility] 2 19:17:33 Candidal vulvovag initis 43809088 Completed 201501/24/2016 Candidia sis, of vulva and vagina; Progress : Stable Added By: Claudia Aguayo Add to Current Problems : NO ProblemS tatus: Resolve Not Available [facility] 2 19:17:34 Notes:Follow-up visit for De po Provera injection (V25.49) ; OnsetDate: 01/24/2016; ResolvedDate: 10/25/2016; Progress: Stable Added By: Charisma Molina Add to Current Problems: NO ProblemStatus: Resolve Problem Notes None recorded. Procedures Surgical History Date Name Laterality Status Provider Name and Address Organization Details Recorded Time 05/22/19 23 Most Recent Mammogram completed Claudia Boone [facility] 07/02/2022 10:31:31 05/23/19 22 hysterectomy completed Johnnie Pineda MD [address] [place] [address], [phone], [facility] 2021 10:50:27 03/15/19 22 Depo Provera Injection completed Elizabeth Fischer [facility] 03/15/2021 14:22:19 03/14/19 22 Endometrial Biopsy completed Johnnie Pineda MD [address] [place] [address], [phone], [facility] 03/14/2021 19:42:03 05/31/19 18 Date of Last Pap Smear completed Elizabeth [facility] 03/10/2021 17:16:23 ligation of bilateral fallopian tubes completed Elizabeth [facility] 03/10/2021 17:17:49 Appendectomy completed Elizabeth [facility] 03/10/2021 17:17:59 Imaging Results None recorded. Procedure Notes None recorded. Medical Equipment None Reported. Allergies No known drug allergies Medications Name Sig Start Date Stop Date Status Note LastModified by Organization Details LastModified Time cyclobenz aprine 10 mg tablet TAKE 1 TABLET BY MOUTH TWICE A DAY NEEDED active Not Available Not Available No t Available methocarb roxanne 500 mg tablet TAKE 1 TABLET BY MOUTH 4 TIMES DAILY FOR 10 DAYS. 11/26 completed Not Available Not Available Not Available nystatin 100,000 unit/mL oral suspensio n TAKE 1 TEASPOON FUL BY MOUTH 3 TIMES A DAY 12/08 completed Not Available Not Available Not Available venlafaxi ne ER 75 mg capsule,e xtended release 24 hr Take 1 capsule every day by oral route for 30 days. 2022 active Not Available Not Available Not Avai lable doxycycli ne hyclate 100 mg capsule 03/10 completed Not Available Not Available Not Available ibuprofen 800 mg tablet TAKE 1 TABLET BY MOUTH THREE TIMES A DAY DIRECTED active Not Available Not Available No t Available Lidocaine Viscous 2 % mucosal solution 03/10 completed Not Available Not Available Not Available fluconazo le 150 mg tablet TAKE 1 TABLET BY MOUTH AFTER FINISHIN G ANTIBIOT IC THERAPY, REPEAT 3 DAYS LATER active Not Available Not Available No t Available famotidin e 40 mg tablet TAKE 1 TABLET BY MOUTH EVERY DAY 2023 active Not Available Not Available Not Avai lable prednison e 20 mg tablet TAKE 2 TABLETS BY MOUTH EVERY DAY FOR 5 DAYS active Not Available Not Available No t Available metronida zole 500 mg tablet TAKE 1 TABLET BY MOUTH EVERY 12 HOURS active Not Available Not Available No t Available phentermi ne 37.5 mg tablet TAKE 1/2 OF A TABLET BY MOUTH TWICE A DAY active Not Available Not Available No t Available estradiol 0.05 mg/24 hr semiweekl y transderm al patch APPLY 1 PATCH TRANSDER SHAYNE TWICE A WEEK active Not Available Not Available No t Available ciproflox acin 500 mg tablet TAKE 1 TABLET BY MOUTH EVERY 12 HOURS active Not Available Not Available No t Available sulfameth oxazole 800 mg-trimet hoprim 160 mg tablet 03/10 completed Not Available Not Available Not Available tramadol 50 mg tablet 06/07 completed Not Available Not Available Not Available ondansetr on 8 mg disintegr ating tablet PLACE 1 TABLET ON TOP OF TONGUE AND ALLOW TO DISSOLVE 3 TIMES A DAY NEEDED 07/02 completed Not Available Not Available Not Available oxycodone -acetamin ophen 5 mg-325 mg tablet TAKE 1 TABLET BY MOUTH EVERY 6 HOURS NEEDED 12/08 completed Not Available Not Available Not Available amoxicill in 875 mg tablet 06/07 completed Not Available Not Available Not Available methocarb roxanne 750 mg tablet TAKE 1 TABLET (750 MG) BY MOUTH 3 TIMES A DAY FOR 5 DAYS 11/26 completed Not Available Not Available Not Available estradiol 1 mg tablet TAKE 1 TABLET BY MOUTH EVERY DAY DIRECTED 12/08 completed Not Available Not Available Not Available meclizine 25 mg tablet 06/07 completed Not Available Not Available Not Available diazepam 2 mg tablet TAKE 1 TABLET BY MOUTH EVERY 6 HOURS NEEDED FOR DIZZINES S active Not Available Not Available No t Available benzonata te 100 mg capsule 06/07 completed Not Available Not Available Not Available cephalexi n 500 mg capsule TAKE 1 CAPSULE BY MOUTH 2 TIMES DAILY FOR 3 DAYS. 11/26 completed Not Available Not Available Not Available ferrous sulfate 325 mg (65 mg iron) tablet TAKE 1 TABLET BY MOUTH EVERY DAY active Not Available Not Available No t Available triamcino lone acetonide 0.1 % topical ointment Apply thin film to affected area bid 03/23 completed Triamcin olone Acetonid e 0.1% Topical Ointment Allow Substitu tion: True Refill Denied: No Not Available Not Available Not Available docusate sodium 100 mg capsule Take 1 capsule every day by oral route. 07/02 completed Not Available Not Available Not Available hydroxyzi ne HCl 25 mg tablet TAKE 1 TO 2 TABLETS BY MOUTH EVERY 6 HOURS NEEDED 07/02 completed Not Available Not Available Not Available estradiol 0.01% (0.1 mg/gram) vaginal cream INSERT 1 APPLICAT ORFUL EVERY WEEK BY VAGINAL ROUTE. active Not Available Not Available No t Available zolpidem 10 mg tablet Take 1 tablet every day by oral route. 06/07 completed Not Available Not Available Not Available methylpre dnisolone 4 mg tablets in a dose pack 06/07 completed Not Available Not Available Not Available ketoconaz ole 2 % topical cream APPLY TOPICALL Y DAILY 12/08 completed Not Available Not Available Not Available medroxypr ogesteron e 150 mg/mL intramusc ular suspensio n INJECT 1 ML INTRAMUS CULARLY EVERY 3 MONTHS active Not Available Not Available No t Available amoxicill in 875 mg-potass ium clavulana te 125 mg tablet 03/10 completed Not Available Not Available Not Available Sprintec (28) 0.25 mg-35 mcg tablet 1 tab po daily 05/21 completed Sprintec 35mcg/0. 25mg Tablet RxNorm: 050622 Allow Substitu tion: True Refill Denied: No Not Available Not Available Not Available nitrofura ntoin monohydra te/macroc rystals 100 mg capsule TAKE 1 CAPSULE BY MOUTH TWICE A DAY FOR 5 DAYS 12/08 completed Not Available Not Available Not Available ferrous sulfate 03/10 completed Ferrous Sulfate 325mg Tablets RxNorm: 232294 Allow Substitu tion: True Refill Denied: No Refill DateOccu rred: 11/25/19 16 Not Available Not Available Not Available iron 07/02 completed Not Available Not Available Not Available tranexami c acid 650 mg tablet Take 2 tablets three times a day by oral route 04/04 completed Not Available Not Available Not Available Vitals Date Recorded Body height Provider Name an d Address Organization Details Last Updated DateTime 05/23/2021 149.86 cm [facility] 05/23/2021 15:39:01 Date Recorded Body mass index (BMI) Body weight Provider Name and Address Organization Details Last Updated DateTime 05/23/2021 30.6 kg/m2 07432.88 g Elizabeth [place] [facility] 05/23/2021 16:00:14 Date Recorded Body temperature Provider Name a nd Address Organization Details Last Updated DateTime 05/23/2021 98 [degF] [place] [facility] 05/23/2021 16:00:39 Date Recorded Body height Provider Name an d Address Organization Details Last Updated DateTime 2021 149.86 cm Shannan [place] [facility] 2021 10:27:52 Date Recorded Body mass index (BMI) Body weight Provider Name and Address Organization Details Last Updated DateTime 2021 32.1 kg/m2 20377.47 g Shannan [place] [facility] 2021 10:29:06 Date Recorded Body temperature Provider Name a nd Address Organization Details Last Updated DateTime 2021 98.1 [degF] [place]ann[place] [facility] 2021 10:29:40 Date Recorded Body height Provider Name an d Address Organization Details Last Updated DateTime 06/07/2022 149.86 cm Jacques [place] [facility] 06/07/2022 12:24:38 Date Recorded Body mass index (BMI) Body weight Provider Name and Address Organization Details Last Updated DateTime 06/07/2022 32.4 kg/m2 09156.22 g Tramdaniel Terri [place] [facility] 06/07/2022 12:39:41 Date Recorded Body temperature Provider Name a nd Address Organization Details Last Updated DateTime 06/07/2022 97.9 [degF] Tramea [place] [facility] 06/07/2022 12:39:49 Date Recorded Body height Provider Name an d Address Organization Details Last Updated DateTime 07/02/2022 149.86 cm Claudiadevon Boone [place] [facility] 07/02/2022 10:27:14 Date Recorded Body mass index (BMI) Body weight Provider Name and Address Organization Details Last Updated DateTime 07/02/2022 32.4 kg/m2 68290.93 g Claudiadevon [place] [facility] 07/02/2022 10:35:39 Date Recorded Body height Provider Name an d Address Organization Details Last Updated DateTime 11/26/2022 149.86 cm Zaira Corea [place] [facility] 11/26/2022 16:17:57 Date Recorded Body mass index (BMI) Body weight Provider Name and Address Organization Details Last Updated DateTime 11/26/2022 31.5 kg/m2 78223.41 g Zaira Corea [place] [facility] 11/26/2022 16:18:05 Date Recorded Body temperature Provider Name a nd Address Organization Details Last Updated DateTime 11/26/2022 98 [degF] Zaira [place] [facility] 11/26/2022 16:19:07 Date Recorded Systolic blood pressure Diastolic blood pressure Provider Name and Address Organization Details Last Updated DateTime 05/23/2021 116 mm[Hg] 74 mm[Hg] Elizabeth Fischer [facility] 05/23/2021 16:00:05 Date Recorded Systolic blood pressure Diastolic blood pressure Provider Name and Address Organization Details Last Updated DateTime 2021 122 mm[Hg] 78 mm[Hg] Shannan Florinda [facility] 2021 10:30:30 Date Recorded Systolic blood pressure Diastolic blood pressure Provider Name and Address Organization Details Last Updated DateTime 06/07/2022 120 mm[Hg] 70 mm[Hg] Jacques Murray [place] [facility] 06/07/2022 12:39:29 Date Recorded Systolic blood pressure Diastolic blood pressure Provider Name and Address Organization Details Last Updated DateTime 07/02/2022 120 mm[Hg] 76 mm[Hg] Claudia Boone [facility] 07/02/2022 10:35:33 Date Recorded Systolic blood pressure Diastolic blood pressure Provider Name and Address Organization Details Last Updated DateTime 11/26/2022 118 mm[Hg] 78 mm[Hg] Zaira Corea [place] [facility] 11/26/2022 16:19:04 Social History Question Answer Notes LastModified by Organizat ion Details LastModified Time Tobacco Smoking Status Never Smoker Elizabeth [place], [place] - [facility] 03/10/2021 17:17:32 What Is Your Level Of Alcohol Consumption? None Information not available 03/10/2021 If You Are , What Was Your Level Of Alcohol Consumption Prior To ? None Information not available 12/07/2021 Are You Blind Or Do You Have Difficulty Seeing? No Information not available 04/04/2021 Are You Currently Employed? Yes Information not available 03/10/2021 Are You Deaf Or Do You Have Serious Difficulty Hearing? No Information not available 04/04/2021 What Type Of Diet Are You Following? 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 4 Information not available 03/10/2021 What Is Your Relationship Status? No [place] Since Hyst Information not available 07/02/2022 Are You Sexually Active? Yes Information not available 03/10/2021 Do You Use Any Illicit Or Recreational Drugs? No Information not available 04/04/2021 Do You Or Have You Ever Used Any Other Forms Of Tobacco Or Nicotine? No Information not available 12/07/2021 Sex: Unknown Functional Status Question Answer Note LastModified by Organizat ion Details LastModified Time What is your exercise level? Occasional Information not available 03/10/2021 Mental Status None recorded. Family History Relationship Description Onset Age of this Age Resolved Age Notes LastModified by Organization Details LastModified Time Mother Malignant tumor of ovary Not available 09/2021 17:17:15 Medical History Condition Response Blood Transfusion Gynecological History Statement/Question Response Date of Last Colonoscopy Date of LMP 03/08/2020 HPV Vaccine N Date of Last Pap Smear 05/30/2017 Most Recent Mammogram 05/21/2022 Current Control Method Hysterectom y Age at Menarche 13 Obstetrics History GPAL:G 6 P 4 0 2 4 Type Value Full Term 4 Induced 1 Spontaneous 1 Living 4 Total 6 Past Encounters Encounter ID Performer Location Encounter Start Date Encounter Closed Date Diagnosis/Indication Diagnosis SNOMED-CT Code Diagnosis ICD10 Code Diagnosis Note [id number] Johnnie Pineda MD [facility] [address] [place] [address] 03/10/2021 16:39:54 03/13/2021 10:34:03 Menorrhagia 518655809 N92.0 will have her back for US and larry we will get embx Secondary dysmenorrhea 11549283 N94.5 discussed otpions being hyst Uterine leiomyoma 362565 05 D25.9 [id number] Johnnie Pineda MD [address] [address] 03/14/2021 16:57:29 03/15/2021 11:21:56 Disorder of menstruation 037893727 N92.6 Lesion of cervix 7726215 01 N88.9 Venereal d isease screening 456256032 Z11.3 Erosion of cervix 790616 04 N86 hsv culture Menorrhagia 736587506 N9 2.0 discussed fibroids and depo and add estrogen and hgb was 6 and we will recheck tomorrow [id number] Johnnie Pineda MD [address] [address] 03/15/2021 14:09:02 03/16/2021 14:30:31 Uses depot contraception 675421075 Z30.42 [id number] Johnnie Pineda MD [address] [address] 04/04/2021 15:28:29 04/05/2021 11:13:29 Secondary dysmenorrhea 98783261 N94.5 discussed otpions being hyst Anemia due to chronic blood loss 720613341 D50.0 Menorrhagia 423088558 N9 2.0 discussed fibroids and depo and add estrogen and hgb was 6 and we will recheck tomorrow Uterine leiomyoma 445628 05 D25.9 COUNSELING was provided today regarding the following topics: . The surgical procedure for Da Chema total Laparoscop ic Hyst and bilateral salpingect georgina, the alternativ es and risks including but not limited to anethesia, bleeding, infection, injury to surroundin g organs, improper wound healing, DVT, VTE, PE, pneumonia, possible need for laparotomy , ureteral or bladder injury, , or possible need for more surgery at a later date were all discussed and explained. The procedure was explained with the aid of an anatomical model and pamphlet. The patient wants to keep her ovaries unless they look abnormal or we discussed removing them and ramificati ons of surgical menopause as well as recommend to do HRT in some regard . She understand s that her uterus is being removed and she then will not be able to carry a for herself or anyone else. The expected recovery was discussed. The patient was able to tell me back a good understand ing of the procedure, it's indication , the risks and recovery. She has no questions and wants to proceed as scheduled [id number] RODERICK CANALESZAHEER [address] [address] 05/11/2021 13:17:07 06/01/2021 12:34:55 Postoperative visit 299576168 Z09 Cleared to return to work. FU for 6 week PostOp visit. [id number] Johnnie Pineda MD [address] [address] 05/23/2021 15:22:29 05/23/2021 16:49:23 Postoperative visit 744208731 Z09 COUNSELING was provided today regarding the following topics: healthy eating habits. Patient education given on weight management . . Postperati ve Recommenda tions: Excercise- may resume all regular activity, , aerobic excercise, bathing, and driving. and 85% strength and at 12 weeks will be 100% and absolutely no limitation s and until then ease into strenuous exercise FOLLOW-UP: in one year or sooner if issues and discussed good bowel health and if postcoital bleding or pain to contact us for a visit NEED TO MAKE APPT FOR ANNUAL EXAM WITH PAP . [id number] Johnnie Pineda MD [address] [address] 2021 10:25:52 2021 12:28:35 Gynecologic examination 97041113 Z01.89 y.o. here for annual exam. - Pap up to date from , discussed natural course of HPV infection, ASCCP guidelines . Plan to repeat cotesting in - Contracept morena counseling : Discussed options including OCPs, NuvaRing, Nexplanon, hormonal and copper IUDs. Discussed risks, benefits, and side effects of each option, including risk of VTE with hormonal contracept ion and uterine perforatio n with IUD. - Routine labs done with PCP - Mammo last year WNL, discussed option for yearly or q2 yr screening in 40s based on different guideline recommenda tions, pt without family hx, would like to proceed with q2yr screening, repeat next year - Depression screen NEG - BMI counseling , diet and exercise reviewed - RTO for annual or PRN Screening for malignant neoplasm of breast 465064788 Z12.39 Vaginal discharge 504585 006 N89.8 Chronic constipation 236 275243 K59.09 TESTS/PROC EDURES: will get BMP as well as reflex tsh and magnesium level we will try cons and then linzwss if neededCOUN SELING was provided today regarding the following topics: healthy eating habits. Patient education given on weight management . , regular exercise. Patient handout given on Fitness , discussed certain complicati ons that can occur with chronic constipati on such as urinary stress incontinen ce,prolaps e,and diverticul osis which could lead to diverticul itis and colostomy , and Genetic Counseling .RECOMMEND ATIONS given include: increase fluid intake . discussed constipati onFOLLOW-U P: Advised to call if there is no improvemen t. Schedule follow-up appointmen ts on a p.r.n. basis. if you have tried all of the meds which include bulking agents and laxatives including smooth move tea and have not had any luck we can try linzess and you may need to take 1 tab daily or every other day or 1/2 the capsule every 3rd day you just need to find what works for your body and continue taking that dose so you have a soft bowel movement every day to every other day . Reduced libido 3584972 R 68.82 Chronic insomnia 0108323 04 F51.04 back in 1 month [id number] ZONIA STERN MD [facility] [address] [place] [address] 06/07/2022 11:31:04 08/16/2022 13:27:23 Screening for malignant neoplasm of breast 191172880 Z12.39 Menopausal symptom 16335 002 N95.1 [id number] Johnnie Pineda MD [facility] [address] [place] [address] 07/02/2022 10:21:13 07/02/2022 12:02:18 Gynecologic examination 33038951 Z01.89 y.o. here for annual exam.francisca de la garza great after the hyst- Pap up to date from , discussed natural course of HPV infection, ASCCP guidelines . Plan to repeat cotesting in- Contracept morena counseling : Discussed options including OCPs, NuvaRing, Nexplanon, hormonal and copper IUDs. Discussed risks, benefits, and side effects of each option, including risk of VTE with hormonal contracept ion and uterine perforatio n with IUD.- Routine labs done with PCP- Mammo last year WNL, discussed option for yearly or q2 yr screening in 40s based on different guideline recommenda tions, pt without family hx, would like to proceed with q2yr screening, repeat next year- Depression screen NEG- BMI counseling , diet and exercise reviewed- RTO for annual or PRN Depression screening 171 440344 Z13.31 none Menopausal symptom 04950 002 N95.1 discussed any form of transderma l estrogen and possiblyy prometrium 100mg daily o as well as possibly osphena and vagifem... .can do any combinatio n and will call [facility] for any hormone regimen if desires to [facility] in [facility] for estrogen cream vaginally or E,P,and or Testostero ne cream combinatio n and we would use estriol only as a form of estrogen for least amt of stimulatio n to the breast if desiresFOL LOW-UP: Schedule follow-up appointmen ts on a p.r.n. basis. . [id number] Johnnie Cao, [facility] [address] [place] [address] 11/26/2022 15:58:55 11/26/2022 17:31:43 Urinary tract infectious disease 01931929 N39.0 Venereal d isease screening 545339644 Z11.3 Health Concerns Section Related Observation LastModified by Organization Binhai ls LastModified Time None Recorded Concern Status LastModified by Organization Details LastModified Time None Recorded Advance Directives Directive None Recorded Payers Encounter Date Sequence Insurance Name Policy Number Policy Lugo Covered Member ID Lugo Member ID Guarantor Name 05/23/2021 1 [facility] (MEDICAID HMO) [id number] Kenya Bernstein Hays [id number] Kenya Bernstein Hays 2021 1 [employer] [facility] [place] [id number] Kenya L Hays [id number] Kenya L Hays 06/07/2022 1 [facility] (MEDICA[employer] H[employer]) [id number] Kenya L Hays [id number] Kenya L Hays 07/02/2022 1 [facility] (MEDICA[employer] H[employer]) [id number] Kenya L Hays [id number] Kenya L Hays 11/26/2022 1 [employer] [facility] [place] [id number] Kenya L Hays [id number] Kenya L Hays Notes Date Note Type Note Provider Name and Address Organization Details Recorded Time 05/23/2021 text/html Post-OpReported bypatient.Onset/Ti glenn:date of surgery: (05/04/2021) Quality:procedure: (John. [facility] cytoscopy) Context:reason for procedure: (menorrhagia, large fibroids and uterus) Associated Symptoms:incision healing well; no fatigue; normal appetite; normal bowel function; no constipation; no nausea; no emesis; pain improving; no pain; no fever; no bleeding; no lower extremity edema/pain; no dysuria/urinary symptomsNotes:doijaz g well and no bleeding Johnnie Pineda MD [address] [place], [phone], [facility] 05/23/2021 16:38:30 2021 text/html Annual GYNReport ed bypatient.Menstrua l cycle:Normal menses Urinary symptoms:No hematuria; No incontinence Vulva:No genital lesion Vagina:Normal vaginal discharge Breast:No breast lump; No nipple discharge;Breast pain; nipple pain Sexual complaints:No sexual complaints; No pain during intercourse; Normal libido Menopausal Symptoms:No menopausal symptoms; Normal vaginal lubrication Psychological symptoms:No depression; No anxiety; No PMDDNotes:having some discharge , some odor having discomfort in abdomen since her hysterectomy Johnnie Pineda MD [address] [place] [address], [phone], [facility] [employer] [facility] 2021 11:04:21 06/07/2022 text/html 46 year old here for vasomotor symptoms.s/p Robotic hysterectomy with Dr. Pineda in 05/2021 for leiomyoma uterus. Ovaries retained per op report.Reports menopausal symptoms every since she had hysterectomy. ZONIA WIGGINS MD [address] [place] [address], [phone], [facility] [employer] 09/03/2022 13:40:14 07/02/2022 text/html Annual Resolution Manager Post-MenopausalRep orted bypatient.Menopaus al Symptoms:no menopausal symptoms Vaginal Bleeding:history of menopause having occurred Urinary Symptoms:no hematuria; no incontinence; no nocturia; no urinary frequency Vulva:no genital lesion; no vulvar atrophy Vagina:normal vaginal discharge; no vaginal atrophy Breast:no breast lump; no nipple discharge; no breast pain Sexual Complaints:no sexual complaints; normal libido; no pain during intercourse Psychological Symptoms:no depression; no anxiety Preventive Measures:encourage self breast examination; encourage regular exercise; mammogram performed within the past year [place] 46 y/o here for annual well women visit, she is post hysterectomy, Last pap 05/30/2017 , Last mammogram 05/2022 Johnnie Pineda MD [address] [place] [address], [phone], [facility] [employer] [facility] 07/02/2022 11:44:50 11/26/2022 text/html [place] 46 year old here ER follow upPt had CT scan done finding:Small amount of fluid in the pelvis is seen. The uterus andovaries are not visualized possibly due to prior surgery. Air in thevagina is noted. The gonadal veins appear prominent bilaterally, more soon the right side. Pt states that have vaginal discharge and UTI symptoms.s/p Robotic hysterectomy with Dr. Pineda in 05/2021 for leiomyoma uterus. Ovaries retained per op report. Johnnie Cao DO [address] [place] [address], [phone], [facility] 11/26/2022 16:48:58 OBGyn Episode No OBEpisode recorded.
--- OUTSIDE RECORDS SUMMARY | 2024-04-01 01:12 | XMS_ITS | Clinical Summary ---
Author Organization [facility] Address [address] [place] [address] Care Team Providers Care Socket Welder Helper Name Role Phone Unavailable Primary Care Provider Unavailabl e Source Comments [facility],non-owned Affiliates and Associated Physician Practices is amultiple site organization consisting of ambulatory clinics and hospital sitesin [place], [place], [place] and [place]. This disclosure is being madepursuant to the Care Everywhere program and may not contain all information available regarding this patient. Last updated 17.[facility] Immunizations Name Administration Dates Next Due Covid Pfizer primary monoval ent 12+ yr 0.3mL Purple cap 04/18/2020,04/01/2020 Social History Tobacco Use Types Packs/Day Years Used Date Smoking Tobacco: Never Assessed Sex and Gender Information Value Date Recorded Sex Assigned at Not on file Gender Identity Not on file Sexual Orientation Not on file Plan of Treatment Health Maintenance Due Date Last Done Comments COLOGUARD (AGES 45-75) - COL ON CA SCREENING 1976 COLON MONITORING 1976 COLONOSCOPY - COLON CA SCREENING 1976 CT COLONOGRAPHY - COLON CA SCREENING 1976 Colorectal Cancer Screening 1976 FIT - COLON CA SCREENING 1976 FLEX SIG - COLON CA SCREENING 1976 LIPID TESTING 1976 MAMMOGRAM 1976 PAP SMEAR 1976 HIV SCREENING 12/09/1991 HEPATITIS C SCREENING 12/04/1994 DTAP/TDAP/TD VACCINES (1 - Tdap) 12/09/1995 HEPATITIS B VACCINE (1 of 3 - 19+ 3-dose series) 12/09/1995 COVID-19 VACCINE ( - 2023-2 5 season) 2023 04/18/2020, 04/01/2020 INFLUENZA VACCINE (#1) 2023 DEPRESSION SCREENING 03/04/2024 ZOSTER VACCINE (1 of 2) 2026 HIB VACCINE Aged Out No longer eligi ble based on patient's age to complete this topic HPV VACCINE Aged Out No longer eligi ble based on patient's age to complete this topic MENINGOCOCCAL (Group B) VACCINE Aged Out No longer eligible b ased on patient's age to complete this topic MENINGOCOCCAL VACCINE Aged Out No saurabh jean-paul eligible based on patient's age to complete this topic PNEUMOCOCCAL VACCINE Aged Out No long er eligible based on patient's age to complete this topic
--- OUTSIDE RECORDS SUMMARY | 2024-04-01 01:12 | XMS_ITS | Clinical Summary ---
Author Organization [facility] Address [facility] [facility] [address] [place] [address] Care Team Providers Care Assembler Type Bar And Segment Name Role Phone None, Provider MD Primary Care Provider Unavaila ble Allergies No known active allergies Medications famotidine 40 MG tablet Take 1 tablet (40 mg total) by mouth daily. Active ibuprofen (MOTRIN) 800 MG tablet Take 1 tablet (800 mg total) by mouth every 8 (eight) hours as needed for Pain. 2 Active cyclobenzaprine (FLEXERIL) 10 MG tablet Take 1 tablet (10 mg total) by mouth 2 (two) times daily as needed for Muscle Spasms. Active Multiple Vitamins-Minerals (WOMENS MULTI GUMMIES OR) Active lidocaine 4 % patch Place 1 patch onto the skin daily. Remove & Discard patch within 12 hours or as directed by MD 7 patch 3 Active ondansetron (ZOFRAN-ODT) 4 MG disintegrating tablet Take 1 tablet (4 mg total) by mouth every 8 (eight) hours as needed for Nausea. 15 tablet 3 Active Active Problems Problem Noted Date Diagnosed Date Anemia 02/21/2021 Bacterial pneumonia 12/20/2015 Bacterial vaginosis 11/11/2014 Anemia 11/11/2014 Vaginal discharge 11/05/2014 Allergic reaction 11/04/2014 Low back pain 11/04/2014 Dysuria 10/01/2012 Sinusitis 10/01/2012 Resolved Problems Problem Noted Date Diagnosed Date Resolved Date Screening for STDs (sexually transmitted diseases) 11/05/2014 02/27/2021 Screening for deficiency anemia 11/04/2014 02/27/2021 Screening for lipoid disorders 11/04/2014 02/27/2021 Encounters Date Type Department Care Team Description 03/31/2024 7:43 PM FISH ROE TECHNICIAN - Present Emergency [facility] [place] [address] 03/31/2024 Travel 01/17/2024 11:23 AM FISH ROE TECHNICIAN - 01/17/2024 11:37 AM FISH ROE TECHNICIAN Emergency [facility] [place] [address] Gena Sheehan PA Skin Problem Discharge Disposition: Home or Self Care (Routine Discharge) 01/17/2024 Travel from Last 3 Months Immunizations Name Administration Dates Next Due Dtp 12/30/1991 Hepatitis A 05/16/2011,09/25/2010 Hepatitis A (Generic) 09/26/2000 Hepatitis B 09/25/2010 MMR 09/25/2010,12/30/1991 Menactra 10/12/2010 Polio Ipv (Generic) 10/12/2010 Tdap (Generic) 09/25/2010 Varicella Vaccine 09/25/2010 Family History Medical History Relation Comments Cancer Mother OVARIAN Cancer Sister PANCREATIC Relation Status Comments Father Mother Sister Social History Tobacco Use Types Packs/Day Years Used Date Smoking Tobacco: Never Smokeless Tobacco: Never Tobacco Cessation:Counseling Given: No Alcohol Use Standard Drinks/Week Comments Not Currently [...] Sign Reading Time Taken Comments Blood Pressure 144/87 01/17/2024 11:31 AM FISH ROE TECHNICIAN Pulse 57 01/17/2024 11:31 AM FISH ROE TECHNICIAN Temperature 36.3 ??C (97.3 ??F) 01/17/2024 10:[address] Respiratory Rate 16 01/17/2024 11:31 AM FISH ROE TECHNICIAN Oxygen Saturation 100% 01/17/2024 11:31 AM FISH ROE TECHNICIAN Inhaled Oxygen Concentration - - Weight 77.2 kg (170 lb 3.1 oz) 01/17/2024 10:50 AM FISH ROE TECHNICIAN Height 151.1 cm (4' 11.5 ) 01/17/2024 10:50 AM Donna WOLF Body Mass Index 33.8 01/17/2024 10:50 AM FISH ROE TECHNICIAN Plan of Treatment Health Maintenance Due Date Last Done Comments Colorectal Cancer Screening Colonoscopy (10 Years) 1976 Annual Physical 12/09/1979 Hepatitis B Vaccines (2 of 3 - 19+ 3-dose series) 10/23/2010 09/25/2010 DTaP, Tdap and Td Vaccines ( 3 - Td or Tdap) 09/25/2020 09/25/2010, 12/30/1991 COVID-19 Vaccine (3 - 2023-2 5 season) 2023 04/18/2020, 04/01/2020 Influenza Adult (#1) 2023 Mammogram Screening 06/25/2024 06/25/2022 Meningococcal Vaccine Aged Out 10/12/2010 No saurabh jean-paul eligible based on patient's age to complete this topic Hepatitis C Completed 11/05/2014 Colorectal Cancer Screening FIT/FOBT (1 Year) Discontinued 02/21/2021 Meningococcal B Vaccine Aged Out No l onger eligible based on patient's age to complete this topic Pneumococcal Vaccine: Pediatrics (0 to 5 Years) and At-Risk Patients (6 to 64 Years) Aged Out No longer eligible based on patient's age to complete this topic RSV Immunizations Under 20 Months Aged Out No longer eligible based on patient's age to complete this topic Procedures * The patient is currently admitted. The information in this section might not be complete until the patient is discharged. Procedure Name Priority Date/Time Associated Diagnosis Comments MG SCREENING W CRISTIANO LIZETTE DIGI Routine 06/25/2022 9:02 AM CDT Encounter for screening mammogram for malignant neoplasm of breast OCCULT BLOOD, FECES STAT 02/21/2021 1 2:45 PM FISH ROE TECHNICIAN HEPATITIS A,B,& C Routine 11/05/2014 12: 10 PM CDT COLONOSCOPY Routine FISH ROE TECHNICIAN from Last 3 Months or Most Recently Relevant to Health Maintenance Results * MG SCREENING W CRISTIANO LIZETTE DIGI (06/25/2022 9:02 AM CDT) Anatomical Region Laterality Modality Breast Bilateral Mammography 06/25/2022 12:4 5 PM CDT Narrative 06/25/2022 12:46 PM CDT EXAMINATION: Digital bilateral screening mammogram with 3-D tomosynthesis EXAM DATE/TIME: 06/25/2022 8:41 AM REASON FOR EXAM: ??SCREENING ? COMPARISON: Baseline study. TECHNIQUE: Digital screening mammography of both breasts was performed in addition to 3-D Tomosynthesis technique. This study was read with the assistance of a computer-aided detection system. TISSUE DENSITY: There are scattered areas of fibroglandular density. FINDINGS: No suspicious masses, malignant appearing calcifications, skin thickening or other abnormalities are present. ??No significant change from the prior exam. =====IMPRESSION:===== No mammographic findings suggestive of malignancy ASSESSMENT: ACR BI-RADS 2 - BENIGN FINDING(S) Recommendation: 1: Routine Screening Bilateral COMMENTS: Ordered By: ZONIA WIGGINS Interpreted By: Stephon Manuel MD, 06/25/2022 12:45 PM us Zonia Wiggins MD MAMMO Final Res ult * OCCULT BLOOD, FECES (02/21/2021 12:45 PM FISH ROE TECHNICIAN) OCCULT BLOOD FECAL NEGATIVE 02/21/2021 1:46 PM FISH ROE TECHNICIAN [facility] STOOL SPECIMEN / Unknown 02/21/2021 12:45 PM FISH ROE TECHNICIAN us Max Mcallister MD BODY FLUIDS AND STOOLS ORDERAB LES Final Result Performing Organization Address [facility] de Phone Number [facility] [address] [place] [address], * HEPATITIS A,B,& C (11/05/2014 12:10 PM CDT) HAV IGM NON-REACTIVE ? TESTING PERFORMED AT [address] [id number] NR [facility] TO EPIC CONVERSION HEPATITIS B SURFACE AG NON-REACTIVE ? TESTING PERFORMED AT [address] [address] NR [facility] TO EPIC CONVERSION HEP B SURFACE AB REACTIVE ? TESTING PERFORMED AT [address] [address] [facility] TO EPIC CONVERSION HEP B CORE TOTAL AB NON-REACTIVE ? TESTING PERFORMED AT [address] [id number] NR [facility] TO EPIC CONVERSION HEPATITIS C AB NON-REACTIVE ? TESTING PERFORMED AT [address] [id number] NR [facility] TO EPIC CONVERSION 11/05/2014 12:1 0 PM CDT 11/05/2014 12:10 PM CDT Narrative [facility] TO EPIC CONVERSION - 11/09/2014 6:15 PM CDT Result Communication: Call patient with results us Generic Conversion Md [facility] Final R esult Performing Organization Address [facility]/ZIP Co de Phone Number [facility] TO EPIC CONVERSION * Colonoscopy ( FISH ROE TECHNICIAN) Narrative [facility] TO EPIC CONVERSION - FISH ROE TECHNICIAN Documented hx of procedure Procedure Note Abhay Bowman MD - 01/05/2018 Documented hx of procedure us Generic Conversion Md [facility]ED[facility] ORDERABLES Final Result [facility] TO EPIC CONVERSION from Last 3 Months or Most Recently Relevant to Health Maintenance Advance Directives * Full Code (Latest Code Status on File) Date Activated Date Inactivated Comments 02/21/2021 1:14 PM 02/22/2021 6:28 PM Care Teams Assembler Type Bar And Segment Relationship Specialty Start Date End Date None, Provider, PCP - General 12/14/20
--- OUTSIDE RECORDS SUMMARY | 2024-04-01 01:12 | XMS_ITS | Encounter Summary ---
Author Organization [facility] Address [facility] [place], [place] [address] [place] [id number] Care Team Providers Care Power Shovel Operator Name Role Phone None, Provider Primary Care Provider Unavaila ble Encounter Details Date Type Department Care Team (Latest Contact Info) Description 03/31/2024 Travel Social History Tobacco Use Types Packs/Day Years [...] Assessment Author Status No 02/21/2021 8:41 PM CLEAN ENERGY POLICY ANALYST Activ e * RETIRED Are you blind or do you have serious difficulty seeing, even when wearing glasses? Answer Date of Assessment Author Status No 02/21/2021 8:41 PM CLEAN ENERGY POLICY ANALYST Activ e * Do you have serious difficulty walking or climbing stairs? Answer Date of Assessment Author Status No 02/21/2021 8:41 PM Emerita Gloria RN Active * Do you have difficulty dressing or bathing? Answer Date of Assessment Author Status No 02/21/2021 8:41 PM Emerita Gloria RN Active * Because of a physical, mental, or emotional condition, do you have difficulty doing errands alone such as visiting a doctor's office or shopping? Answer Date of Assessment Author Status No 02/21/2021 8:41 PM Emerita Gloria RN Active documented as of this encounter Mental Status * Because of a physical, mental, or emotional condition, do you have serious difficulty concentrating, remembering, or making decisions? Answer Entry Date Author Status No 02/21/2021 8:41 PM Emerita Gloria RN Active documented in this encounter Plan of Treatment Not on file documented as of this encounter Visit Diagnoses Not on filedocumented in this encounter Care Teams Power Shovel Operator Relationship Specialty Start Date End Date None, Provider, PCP - General 12/14/20 documented as of this encounter
--- NOTE | 2024-04-01 01:24 | ED_ITS ---
HPI - Nausea/Vomiting/Diarrhea General Chief complaint: Nausea/Vomiting/Diarrhea Stated complaint: diarrhea/vomiting/facial twitching x 1 hour Time Seen by Provider: 04/01/24 00:46 History of Present Illness HPI Narrative: Patient is a 48-year-old female who presents to the ER with diarrhea, vomiting, decreased p.o. intake, congestion, chills/sweats. She reports her symptoms started approximately 1/2 days ago. 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 She endorses intermittent shortness of breath and wheezing, along with congestion. Patient reports she has been urinating at least once every 8 hours. She endorses a history an appendectomy, partial hysterectomy, 3 C-sections, blood pressure during . Patient denies any history of diabetes, kidney disease, asthma, COPD. She denies any current chest pain, acute back pain, lower extremity edema, one-sided numbness/weakness/tingling. Related Data Allergies Allergy/AdvReac Type Severity Reaction Status Date / Time No Known Allergies Allergy Verified 03/31/24 20:38 Review of Systems 2 Review of Systems: All systems reviewed & are unremarkable except as noted in HPI and below Exam 2 Narrative: GENERAL: Well appearing, well-nourished, non-toxic, in no acute distress. HEAD: Normocephalic, atraumatic. NECK: Supple. No adenopathy, no masses. RESPIRATORY: Airway patent, respirations nonlabored. Clear to auscultation bilaterally, no rales, rhonchi, wheezing. CARDIOVASCULAR: Regular rate and rhythm without murmurs, rubs, or gallops. Peripheral pulses 2+ and equal bilaterally. ABDOMINAL: Soft, tender with palpation in all four quadrants, nondistended, no hepatosplenomegaly. Normoactive BS. MUSCULOSKELETAL: Moves all extremities. Strength/ROM intact without gross deformities. SKIN: Warm, dry, normal color. No rashes. NEURO: A&O X3. Speech clear. Cranial nerves II-XII grossly intact. No ataxic movements. PSYCHIATRIC: Appropriate mood and affect. Normal interaction. Course Vital Signs Vital signs: Vital Signs Temperature 36.7 C 03/31/24 20:39 Pulse Rate 70 03/31/24 20:39 Respiratory Rate 20 03/31/24 20:39 Blood Pressure 140/77 03/31/24 20:39 Pulse Oximetry 97 03/31/24 20:39 Oxygen Delivery Room Air 03/31/24 20:39 Temperature 36.7 C 03/31/24 20:39 Pulse Rate 75 04/01/24 02:12 Respiratory Rate 17 04/01/24 02:12 Blood Pressure 168/91 H 04/01/24 02:12 Pulse Oximetry 99 04/01/24 02:12 Oxygen Delivery Room Air 03/31/24 20:39 MDM - Nausea/Vomiting/Diarrhea MDM Narrative Medical decision making narrative: Patient is a 48-year-old female who presents to the ER with diarrhea, vomiting, decreased p.o. intake, congestion, chills/sweats. She reports her symptoms started approximately 1/2 days ago. 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 She endorses intermittent shortness of breath and wheezing, along with congestion. Patient reports she has been urinating at least once every 8 hours. She endorses a history an appendectomy, partial hysterectomy, 3 C-sections, blood pressure during . Patient denies any history of diabetes, kidney disease, asthma, COPD. She denies any current chest pain, acute back pain, lower extremity edema, one-sided numbness/weakness/tingling. Labs Ordered: CBC, CMP, lipase, COVID/flu/RSV swab, urinalysis, hCG urine Imaging Ordered: CT chest PE, abdomen/pelvis Medications Ordered: 1 L normal saline IV bolus, Macrobid, Zofran 4 mg x 2, potassium chloride powder, Toradol 15 mg Results: Patient's CBC was unremarkable. Her CMP indicated is mild hypokalemia, but was otherwise unremarkable. Patient's lipase was 19. Her urinalysis indicated patient has a UTI. Pt's influenza/RSV/COVID swab was negative. Diagnosis: Urinary tract infection, gastroenteritis Patient Education/Shared MDM: Results shared with patient. She endorses pain relief after Toradol administration. Patient also endorses decreased nausea after Zofran administration. She was given a dose of Macrobid here in the ER and will be discharged home with a prescription for 5 days. Patient will also be discharged home with a prescription for Zofran ODT. She should follow-up with her primary care provider in 2-3 days. Patient verbalizes understanding and is in agreement with plan. Vital signs stable at time of discharge. All questions answered. Differential Diagnosis Differential diagnosis: Likely gastroenteritis and dehydration Lab Data Attestation: I reviewed the patient's lab results. 03/31/24 23:49 03/31/24 23:49 Labs: Lab Results 03/31/24 03/31/24 Range/Units 20:52 23:49 WBC 4.7 (4.5-10.0) K/mm3 RBC 3.99 L (4.2-5.4) M/mm3 Hgb 12.5 (12.0-15.0) g/dL Hct 38.2 (37.0-47.0) % MCV 95.7 (80-100) fl MCH 31.3 (26-34) pg MCHC 32.7 (32-36) g/dl RDW 13.4 (11.5-14.5) % Plt Count 187 (150-375) k/mm3 MPV 10.8 H (7.4-10.4) fl Immature Gran % (Auto) 0.2 (0-0.5) % Neut % (Auto) 63.2 (45.5-73.1) % Lymph % (Auto) 27.7 (18.3-44.2) % [place] % (Auto) 8.5 (2.6-8.5) % Eos % (Auto) 0.2 (0-4.4) % Baso % (Auto) 0.2 (0.2-1.2) % Lymph # (Auto) 1.31 (0.9-3.2) K/mm3 [place] # (Auto) 0.4 (0.1-0.6) K/mm3 Eos # (Auto) 0.0 (0-0.3) K/mm3 Baso # (Auto) 0.0 (0.0-0.1) K/mm3 Abs Immat Gran (auto) 0.01 (0.00-0.031) K/mm3 Absolute Neuts (auto) 3.0 (1.3-6.7) K/mm3 Absolute Nucleated RBC 0.000 (0.0-0.012) K/mm3 Nucleated RBC % 0.0 (0.0-0.2) % Sodium 139 (137-145) mmol/L Potassium 3.3 L (3.4-5.0) mmol/L Chloride 103 (98-107) mmol/L Carbon Dioxide 28 (22-30) mmol/L Anion Gap 8 (4-12) mmol/L BUN 11 (7-17) mg/dL Creatinine 0.84 (0.7-1.0) mg/dL Estim Creat Clear Calc Not Reportable Estimated GFR > 60 (59 - ) Glucose 92 (65-110) mg/dL Calcium 8.7 (8.4-10.2) mg/dL Total Bilirubin 0.8 (0.2-1.3) mg/dL AST 23 (14-36) U/L ALT 21 (6-35) U/L Alkaline Phosphatase 65 (38-126) U/L Total Protein 7.0 (6.3-8.2) g/dL Albumin 4.0 (3.5-5.1) g/dL Lipase 19 L (23-300) U/L Urine Color Dark yellow (Yellow) Urine Appearance Cloudy H (Clear) Urine pH 6.0 (5.0-9.0) Ur Specific [place] 1.039 H (1.001-1.035) Urine Protein Negative (Negative) mg/dL Urine Glucose (UA) Negative (Negative) mg/dL Urine Ketones Trace H (Negative) mg/dL Ur Blood (Man) 2+ H (Negative) Urine Nitrate Negative (Negative) Urine Bilirubin Negative (Negative) Urine Urobilinogen 1.0 (<2.0) mg/dL Add Ur Microanalysis Reviewed Leukocyte Esterase Rfl Negative (Negative) MARTINA/UL Urine RBC 21-50 H (0-2) /hpf Urine WBC 11-20 H (0-3) /hpf Ur Squamous Epith Cells Many H (Few) /hpf Urine Bacteria 1+ H /hpf Urine Casts 0-2 Urine Test Negative Influenza A (RT-PCR) Negative (Negative) Influenza B (RT-PCR) Negative (Negative) RSV (RT-PCR) Negative (Negative) SARS-CoV-2 RNA (RT-PCR) Negative (Negative) Imaging Data Attestation: I personally reviewed and interpreted this imaging study as follows: Radiologist's impression: Patient's CT scan indicates no pulmonary embolism, no thoracic aortic dissection, no pneumonia, bibasilar subsegmental atelectasis, no abdominal aortic dissection, and no acute abnormalities Discharge Plan Discharge Clinical Impression: Urinary tract infection, Gastroenteritis, Hypokalemia Patient Disposition: Home, Self-Care Condition: Stable Instructions: Antibiotic Form, Urinary Tract Infection in Women (ED), Hypokalemia (ED), Acute Nausea and Vomiting (ED) Additional Instructions: Please return to the ER with an worsening symptoms. Follow-up with primary care provider in the next 2-3 days. Take all medications as prescribed. Patient Language: Persian Prescriptions: New ondansetron 4 mg tablet,disintegrating 4 mg PO Q8H Qty: 12 0RF nitrofurantoin monohyd/m-cryst [Macrobid] 100 mg capsule 100 mg PO Q12H 5 Days Qty: 10 0RF Rx Instructions: must administer with a meal/food Follow-up/Referrals: PHYSICIAN,DIRECTOR OF VITAL STATISTICS [Primary Care Provider] - Time of Disposition: 03:03
[2024-04-01] MEDS: NITROFURANTOIN MONOHYD MACROCR 100 MG CAP PO (01:41)
[2024-04-01] MEDS: SODIUM CHLORIDE 0.9% IV 1,000 ML 999 ML IV CONT (01:42)
[2024-04-01] MEDS: ONDANSETRON INJ 4 MG/2 ML VIAL IV PUSH (02:10)
[2024-04-01] MEDS: POTASSIUM CHLORIDE 20 MEQ PACKET (FOR LIQUID) 40 MEQ PO (02:10)
[2024-04-01] MEDS: KETOROLAC 15 MG/ML VIAL (*BKC) IV PUSH (02:40)
== END 2024-04-01 03:55 | disposition home or self-care (01) ==
PROVIDERS: Student in an Organized Health Care Education/Training Program; Emergency Provider Registered Nurse
DX: N39.0 Urinary tract infection, site not specified (principal); K52.9 Noninfective gastroenteritis and colitis, unspecified; E87.6 Hypokalemia; Z20.822 Contact with and (suspected) exposure to COVID-19
CPT/HCPCS: 36415; 71275; 74177; 80053; 81001; 81025; 83690; 85025; 87637; 93005; 96361; 96374; 96375; 99284; A9270; J1885; J2405; J7030; Q9967